=== PATIENT | male | born 1990 | race American Indian/Alaskan Native ===

== ENCOUNTER 2017-01-26 15:41 | Emergency (ER) | payer SELFPAY ==
[2017-01-26 16:00] VITALS: BP 123/78
[2017-01-26] MEDS ORDERED: TORADOL IM ONE (16:11)
[2017-01-26] MEDS ORDERED: BOOSTRIX IM ONE (16:12)
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
--- NOTE | 2017-01-26 17:30 | XRay Report ---
FINAL REPORT EXAM: XR SPINE THORACIC 3V HISTORY: spinal tenderness TECHNIQUE: AP, lateral and swimmer's views of the thoracic spine. PRIORS: None. FINDINGS: The vertebral body heights and disc spaces are well maintained. The alignment is normal. Pedicles are intact bilaterally at all levels. The paraspinal soft tissues are unremarkable. IMPRESSION: Normal thoracic spine.
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
== END 2017-01-26 18:06 | disposition home or self-care (01) ==
LOC: ED 15:41
DX: S29.019A Strain of muscle and tendon of unspecified wall of thorax, initial encounter (principal); S40.212A Abrasion of left shoulder, initial encounter; S00.81XA Abrasion of other part of head, initial encounter; F17.200 Nicotine dependence, unspecified, uncomplicated; F14.10 Cocaine abuse, uncomplicated; F12.10 Cannabis abuse, uncomplicated; Y08.89XA Assault by other specified means, initial encounter; Y93.89 Activity, other specified; Y99.8 Other external cause status; Y92.89 Other specified places as the place of occurrence of the external cause
CPT/HCPCS: 70150; 72072; 90471; 90715; 96372; 99283; J1885